=== PATIENT | male | born 1950 | race Caucasian/White ===

== ENCOUNTER → 2016-08-22 | Outpatient (CLI) | payer BC ==
[~2016-08-22] MED LIST: ASP81TEC PO; ATOR40TA PO; CYCL10TA9 PO; KETO10TA77 PO; OMG1KC PO
== END ==
LOC: CARD 11:11
PROVIDERS: ATTEND Family Medicine
DX: I49.3 Ventricular premature depolarization (principal)
CPT/HCPCS: 93225; 93226

== ENCOUNTER 2017-05-20 03:47 | Emergency (ER) | payer BC ==
[~2017-05-20] VITALS: Ht 188 cm; Wt 106.6 kg
[2017-05-20] MEDS ORDERED: GEMF600T3 (03:57)
[2017-05-20 04:15] LABS: BASOPHILS % (AUTO) 0 % (0-10); EOSINOPHILS # (AUTO) 0.5 10^3/uL (0.0-0.3); EOSINOPHILS % (AUTO) 3 % (0-10); HEMATOCRIT 49 % (40-54); HEMOGLOBIN 17.1 G/DL (13.3-17.7); LYMPHOCYTES # (AUTO) 0.9 X 10^3 (1.0-4.0); LYMPHOCYTES % (AUTO) 6 % (12-44); MEAN CORPUSCULAR HEMOGLOBIN 32 PG (25-34); MEAN CORPUSCULAR HGB CONC 35 G/DL (32-36); MEAN CORPUSCULAR VOLUME 91 FL (80-99); MEAN PLATELET VOLUME 10.9 FL (7.4-10.4); MONOCYTES # (AUTO) 0.8 X 10^3 (0.0-1.0); MONOCYTES % (AUTO) 5 % (0-12); NEUTROPHILS # (AUTO) 14.2 X 10^3 (1.8-7.8); NEUTROPHILS % (AUTO) 87 % (42-75); PLATELET COUNT 187 10^3/uL (130-400); RED BLOOD COUNT 5.43 10^6/uL (4.35-5.85); RED CELL DISTRIBUTION WIDTH 13.2 % (10.0-14.5); WHITE BLOOD COUNT 16.4 10^3/uL (4.3-11.0)
--- NOTE | 2017-05-20 04:23 | ED General ---
General Chief Complaint: Dizziness/Syncope Stated Complaint: CONSTIPATION FALL PAST OUT SWEATS NOT SLEEPING Nursing Triage Note: PT REPORTS HE HAD A SYNCOPAL EPISODE THIS AM WHEN HE GOT UP TO USE THE RESTROOM. PT REPORTS HE HAS BEEN CONSTIPATED AND HE BEGAN FEELING NAUSEATED. HE STATES HE THEN "FAINTED" AND REPORTS HE FELL TO THE GROUND AND HIT HIS HEAD ON THE CORNER OF THE WALL. PT DENIES ANY INJURY. HE REPORTS DIAPHORESIS WHITH THE SYNCOPAL EPISODE. Nursing Sepsis Screen: No Definite Risk Source of Information: Patient, Spouse History of Present Illness Date Seen by Provider: May 20, 2017 Time Seen by Provider: 03:56 Initial Comments PT ARRIVES VIA POV FROM HOME PT STATES HE GOT UP TO URINATE, THEN AND THEN HE WAS STANDING BY THE SINK AND C/ O BEING NAUSEATED AND GOT CLAMMY/SWEATY AND THEN PASSED OUT, HITTING THE RIGHT/ BACK OF HIS HEAD ON THE CORNER OF A WALL WITNESSED THE EPISODE AND STATES HE WAS COMPLETELY UNCONSCIOUS FOR APPROXIMATELY 1 MINUTE, AND WAS CONFUSED/DISORIENTED FOR APPROXIMATELY 2 MINUTES --DIDN'T KNOW WHAT HAPPENED. PT STATES HE HAD NOT BEEN ABLE TO SLEEP TONIGHT DUE TO VAGUE ABDOMINAL DISCOMFORT--MID AND UPPER ABDOMEN--HAS KEPT HIM UP ALL NIGHT-THOUGHT HE MIGHT BE CONSTIPATED. BUT DENIES TRYING TO HAVE A BM OR STRAINING, ETC. HAD SMALLER THAN NORMAL BM YESTERDAY 05/19/17 DURING THE DAY AND THEN AGAIN AT 2300 05/19/17 STATES HE TOOK 2 BENADRYL TONIGHT, TO TRY TO HELP HIM SLEEP PT STATES HE IS NOT HAVING NAUSEA OR THE ABDOMINAL DISCOMFORT AT THIS TIME PT DENIES HEADACHE OR PAIN FROM HITTING HIS HEAD NO NECK OR BACK PAIN NO PAIN ANYWHERE PRIOR TO SYNCOPAL EPISODE, PT DENIES ANY PALPITATIONS, CHEST PAIN OR SHORTNESS OF BREATH NO VISION CHANGES NO PARESTHESIAS OR MOTOR DEFICITS. PT DOES NOT HAVE ANY COMPLAINTS AT THIS TIME. STATES HE DID NOT EAT VERY MUCH TODAY, BECAUSE HE HAD GAINED A FEW POUNDS. PT ATE A [employer] FOR DINNER, STATES HE DOES HAVE A HISTORY OF GALLBLADDER DISEASE, AND HAS NOT HAD SURGERY NO HISTORY OF SIMILAR PCP: DR. ESTEVEZ Allergies and Home Medications Allergies Coded Allergies: No Known Drug Allergies (Unverified , 10/24/10) Home Medications Aspirin 81 Mg Tabec, 81 MG PO DAILY, (Reported) Atorvastatin Calcium 40 Mg Tablet, 1 EACH PO DAILY, (Reported) Gemfibrozil 600 Mg Tablet, (Reported) Hurley 3 Polyunsat Fatty Acids 1,000 Mg Cap, 2,000 MG PO DAILY, (Reported) Constitutional: see HPI, diaphoresis EENTM: no symptoms reported Respiratory: no symptoms reported Cardiovascular: see HPI, No chest pain, No edema, No palpitations, syncope, No vascular heart diseas Gastrointestinal: see HPI, abdominal pain, nausea Genitourinary: no symptoms reported Musculoskeletal: no symptoms reported Skin: no symptoms reported Psychiatric/Neurological: See HPI, Denies Headache, Denies Numbness, Denies Paresthesia, Denies Seizure, Denies Tingling, Denies Tremors, Denies Weakness Hematologic/Lymphatic: No Symptoms Reported Immunological/Allergic: no symptoms reported Past Lcdqmcm-Uarrnz-Veaphd Hx Patient Social History Alcohol Use: Denies Use Recreational Drug Use: No Smoking Status: Never a Smoker 2nd Hand Smoke Exposure: No Recent Foreign Travel: No Contact w/Someone Who Travel: No Recent Infectious Disease Expo: No Recent Hopitalizations: No Seasonal Allergies Seasonal Allergies: No Surgeries History of Surgeries: Yes (HIATAL HERNIA REPAIR; EGD/COLONOSCOPY) Surgeries: Abdominal Respiratory History of Respiratory Disorde: Yes Respiratory Disorders: Sleep Apnea Cardiovascular History of Cardiac Disorders: Yes (OCCASIONAL PVC'S) Cardiac Disorders: High Cholesterol Neurological History of Neurological Disord: No Reproductive System Hx Reproductive Disorders: No Genitourinary History of Genitourinary Disor: No Gastrointestinal History of Gastrointestinal Di: Yes Gastrointestinal Disorders: Gastroesophageal Reflux, Hiatal Hernia Musculoskeletal History of Musculoskeletal Dis: Yes Musculoskeletal Disorders: Arthritis Endocrine History of Endocrine Disorders: No HEENT History of HEENT Disorders: No (GLASSES) Cancer History of Cancer: No Psychosocial History of Psychiatric Problem: No Integumentary History of Skin or Integumenta: No Blood Transfusions History of Blood Disorders: No Physical Exam Vital Signs Vital Signs - First Documented 05/20/17 03:50 Temp 98.3 Pulse 71 Resp 16 B/P (MAP) 118/80 (93) Pulse Ox 97 O2 Delivery Room Air Capillary Refill : Less Than 3 Seconds General Appearance: No Apparent Distress, WD/WN, Other (AMBULATES INTO ER WITHOUT DIFFICULTY) HEENT: PERRL/EOMI, TMs Normal, Normal ENT Inspection, Pharynx Normal, Other ( NO EXTERNAL EVIDENCE OF TRAUMA ANYWHERE) Neck: Full Range of Motion, Normal Inspection, Non Tender, Supple, No Carotid Bruit, No JVD Respiratory: Chest Non Tender, Normal Breath Sounds, No Accessory Muscle Use, No Respiratory Distress Cardiovascular: Regular Rate, Rhythm, No Edema, No JVD, No Murmur, Normal Peripheral Pulses Gastrointestinal: Normal Bowel Sounds, No Organomegaly, No Pulsatile Mass, Non Tender, Soft Back: Normal Inspection, No CVA Tenderness, No Vertebral Tenderness Extremity: Normal Capillary Refill, Normal Inspection, Normal Range of Motion, Non Tender, No Calf Tenderness, No Pedal Edema Neurologic/Psychiatric: Alert, Oriented x3, No Motor/Sensory Deficits, Normal Mood/Affect, 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 Norm as Tested, No Abnormal Cerebellar Tests, Other (DTR 'S INTACT) Reflexes: 1+ Bicep (R), 1+ Bicep (L), 1+ Knee (R), 1+ Knee (L) Skin: Normal Color, Warm/Dry Progress/Results/Core Measures Suspected Sepsis Recent Fever Within 48 Hours: No Infection Criteria Present: None New/Unexplained Altered Menta: No Sepsis Screen: No Definite Risk Sepsis Diagnosis: SIRS Temperature:98.3 Pulse: 71 Respiratory Rate: 16 Laboratory Tests 05/20/17 04:10: White Blood Count 16.4H Blood Pressure 118 /80 Mean: 93 Laboratory Tests 05/20/17 04:10: Creatinine 1.11, INR Comment 1.1, Platelet Count 187, Total Bilirubin 1.5H Results/Orders Lab Results Laboratory Tests Test 05/20/17 04:10 Range/Units White Blood Count 16.4 H 4.3-11.0 10^3/uL Red Blood Count 5.43 4.35-5.85 10^6/uL Hemoglobin 17.1 13.3-17.7 G/DL Hematocrit 49 40-54 % Mean Corpuscular Volume 91 80-99 FL Mean Corpuscular Hemoglobin 32 25-34 PG Mean Corpuscular Hemoglobin Concent 35 32-36 G/DL Red Cell Distribution Width 13.2 10.0-14.5 % Platelet Count 187 130-400 10^3/uL Mean Platelet Volume 10.9 H 7.4-10.4 FL Neutrophils (%) (Auto) 87 H 42-75 % Lymphocytes (%) (Auto) 6 L 12-44 % Monocytes (%) (Auto) 5 0-12 % Eosinophils (%) (Auto) 3 0-10 % Basophils (%) (Auto) 0 0-10 % Neutrophils # (Auto) 14.2 H 1.8-7.8 X 10^3 Lymphocytes # (Auto) 0.9 L 1.0-4.0 X 10^3 Monocytes # (Auto) 0.8 0.0-1.0 X 10^3 Eosinophils # (Auto) 0.5 H 0.0-0.3 10^3/uL Basophils # (Auto) 0.0 0.0-0.1 10^3/uL Neutrophils % (Manual) 74 % Lymphocytes % (Manual) 8 % Monocytes % (Manual) 5 % Eosinophils % (Manual) 3 % Band Neutrophils 10 % Blood Morphology Comment NORMAL Prothrombin Time 14.0 12.2-14.7 SEC INR Comment 1.1 0.8-1.4 Activated Partial Thromboplast Time 29 24-35 SEC Sodium Level 138 135-145 MMOL/L Potassium Level 4.3 3.6-5.0 MMOL/L Chloride Level 103 98-107 MMOL/L Carbon Dioxide Level 22 21-32 MMOL/L Anion Gap 13 5-14 MMOL/L Blood Urea Nitrogen 24 H 7-18 MG/DL Creatinine 1.11 0.60-1.30 MG/DL Estimat Glomerular Filtration Rate > 60 BUN/Creatinine Ratio 22 Glucose Level 124 H 70-105 MG/DL Calcium Level 9.2 8.5-10.1 MG/DL Magnesium Level 2.4 1.8-2.4 MG/DL Total Bilirubin 1.5 H 0.1-1.0 MG/DL Aspartate Amino Transf (AST/SGOT) 33 5-34 U/L Alanine Aminotransferase (ALT/SGPT) 40 0-55 U/L Alkaline Phosphatase 30 L 40-136 U/L Troponin I < 0.30 <0.30 NG/ML Total Protein 7.8 6.4-8.2 GM/DL Albumin 4.1 3.2-4.5 GM/DL My Orders Orders - LARISA CASTRO DO Saline Lock/Iv-Start (05/20/17 03:57) Ekg Tracing (05/20/17 03:57) Monitor-Rhythm Ecg Trace Only (05/20/17 03:57) Cbc With Automated Diff (05/20/17 03:57) Comprehensive Metabolic Panel (05/20/17 03:57) Magnesium (05/20/17 03:57) Protime With Inr (05/20/17 03:57) Partial Thromboplastin Time (05/20/17 03:57) Troponin I (05/20/17 03:57) Acute Abd Series (05/20/17 03:57) Ct Head/Cervical Spine Wo (05/20/17 04:08) Ct Ines Chest/Noang Abd-Pelv W (05/20/17 04:08) Manual Differential (05/20/17 04:10) Lactated Ringers (Lr 1000 Ml Iv Solution (05/20/17 04:50) Medications Given in ED Current Medications Medications Dose Ordered Sig/Deandre Route Start Time Stop Time Status Last Admin Dose Admin Lactated Ringer's 1,000 ml @ 0 mls/hr Q0M ONCE IV 05/20/17 04:50 05/20/17 05:04 DC 05/20/17 05:15 0 MLS/HR Vital Signs/I&O Vital Sign - Last 12Hours 05/20/17 03:50 Temp 98.3 Pulse 71 Resp 16 B/P (MAP) 118/80 (93) Pulse Ox 97 O2 Delivery Room Air Capillary Refill : Less Than 3 Seconds Blood Pressure Mean: 93 Progress Note : Progress Note NO SYMPTOMS DURING ER STAY, OTHER THAN SHORTLY PRIOR TO DISMISSAL, PT HAD LARGE LIQUID/LOOSE STOOL. NO ABDOMINAL PAIN OR CRAMPING. NO NAUSEA NO CHEST PAIN OR SHORTNESS OF BREATH NO ARRHYTHMIAS NO DIZZINESS--AMBULATED TO AND FROM BATHROOM ON HIS OWN WITHOUT DIFFICULTY ECG Initial ECG Impression Date: May 20, 2017 Initial ECG Impression Time: 04:03 Initial ECG Rate: 70 Initial ECG Rhythm: Normal Sinus Initial ECG Impression: Normal Initial ECG Comparisson: No Previous ECG Available Diagnostic Imaging Comments ACUTE ABDOMEN XRAYS--NON-SPECIFIC BOWEL GAS PATTERN, PENDING RADIOLOGIST REVIEW CT CHEST ANGIO/ ABDOMEN AND PELVIS--NO P.E. . 3.6 X 5.2 X 4.9 CM WELL- CIRCUMSCRIBED OVOID HYPERENHANCING MASS IN ANTERIOR UPPER PELVIS ANTERIOR TO UPPER SIGMOID COLON, WITH PROMINENT FEEDING VESSEL. SUGGESTIVE OF VASCULAR LESION SUCH PSEUDOANEURYSM, SLIGHTLY ENLARGED SINCE PRIOR CT. FAT- CONTAINING LEFT INGUINAL HERNIA, WITH LEFT TESTICLE IN DISTAL ASPECT OF INGUINAL CANAL. ENLARGED PROSTATE. SINGLE SMALL GALLSTON IN GALLBLADDER. --PER [facility] VIA FAX @ 0610 CT HEAD/CERVICAL SPINE--NO ACUTE PROCESS, DEGENERATIVE CHANGES IN CERVICAL SPINE --PER [facility] VIA FAX @ 0642 Reviewed: Reviewed by Me Departure Impression Impression: Primary Impression: Episode of syncope Additional Impressions: SUSPECT EARLY GASTROENTERITIS [place] Head contusion Abnormal finding on CT scan Mild dehydration Disposition: 01 HOME, SELF-CARE Condition: Improved Departure-Patient Inst. Referrals: EDGAR ESTEVEZ MD (PCP/Family) Primary Care Physician Patient Instructions: Dehydration, Adult (DC), [id number], Minor Head Injury (DC), Syncope (Fainting) (DC) Add. Discharge Instructions: CLEAR LIQUIDS TODAY--WATER, BROTH, JELLO, GATORADE BRATS DIET--BANANAS, RICE, APPLESAUCE, TOAST, SALTINE CRACKERS CONTINUE CLEAR LIQUIDS AND BRATS DIET UNTIL YOUR GI SYMPTOMS HAVE RESOLVED FOLLOW UP WITH DR. ESTEVEZ IN 1-2 DAYS FOR FURTHER CARE All discharge instructions reviewed with patient and/or family. Voiced understanding. Scripts Lactobacillus Acidophilus (Acidophilus Lactobacillus) 1 Gm Powder 1 GM MC QID for 7 Days, #1 EA Prov: MATTHEWLARISA K DO 05/20/17 Ondansetron (Zofran Odt) 4 Mg Tab.rapdis 4 MG PO Q4H for Nausea/Vomiting, #10 TAB Prov: MATTHEW,LARISA K DO 05/20/17 Hyoscyamine Sulfate (Levsin-Sl) 0.125 Mg Tab.subl 1-2 TAB SL Q4H for Abdominal Pain, #10 TAB Prov: MATTHEWCONYA K DO 05/20/17 Pantoprazole Sodium (Protonix) 40 Mg Tablet.dr 40 MG PO DAILY, #15 TAB Prov: MATTHEW,LARISA K DO 05/20/17 MATTHEWLARISA K DO May 20, 2017 04:23
[2017-05-20 04:29] LABS: INR 1.1 (0.8-1.4)
[2017-05-20 04:36] LABS: ALANINE AMINOTRANSFERASE 40 U/L (0-55); ALBUMIN 4.1 GM/DL (3.2-4.5); ALKALINE PHOSPHATASE 30 U/L (40-136); BILIRUBIN,TOTAL 1.5 MG/DL (0.1-1.0); BUN/CREATININE RATIO 22; CALCIUM 9.2 MG/DL (8.5-10.1); CARBON DIOXIDE 22 MMOL/L (21-32); CHLORIDE 103 MMOL/L (98-107); CREATININE SERUM 1.11 MG/DL (0.60-1.30); GFR ESTIMATED > 60; GLUCOSE 124 MG/DL (70-105); MAGNESIUM 2.4 MG/DL (1.8-2.4); POTASSIUM 4.3 MMOL/L (3.6-5.0); SODIUM 138 MMOL/L (135-145); TOTAL PROTEIN 7.8 GM/DL (6.4-8.2)
[2017-05-20 04:39] LABS: BAND NEUTROPHILS 10 %; EOSINOPHILS % (MANUAL) 3 %; LYMPHOCYTES % (MANUAL) 8 %; MONOCYTES % (MANUAL) 5 %; NEUTROPHILS % (MANUAL) 74 %; RBC MORPH NORMAL
[2017-05-20] MEDS ORDERED: LACTATED RINGERS 1,000 ML IV ONE (04:50)
--- NOTE | 2017-05-20 06:33 | Diagnostic Imaging Report ---
PROCEDURE: CT head and CT cervical spine without contrast. TECHNIQUE: Multiple contiguous axial images were obtained through the brain and cervical spine without the use of intravenous contrast. Sagittal and coronal reformations through the cervical spine were then performed. INDICATION: Syncope. COMPARISON: None. FINDINGS: CT head: No intracranial hemorrhage, mass effect, hydrocephalus or extra-axial fluid collection. Moderate generalized cerebral and cerebellar parenchymal volume loss is age appropriate. No CT evidence of acute infarction. Intracranial vascular calcifications. Osseous structures are intact. Near-complete opacification of the right frontal sinus. The mastoids are clear. CT cervical spine: Minimal anterolisthesis of C4 on C5. Moderate to advanced degenerative endplate changes throughout cervical spine, most marked at C5-T1. Vertebral body heights preserved. No fractures. Degenerative endplate changes contribute to at least mild, possibly moderate spinal canal narrowing at C5-T1. Scattered moderate and advanced neural foraminal narrowing is also greatest at these levels. Moderate atherosclerotic calcifications including the carotid bifurcations. The visualized paravertebral soft tissues are otherwise unremarkable. IMPRESSION: No acute intracranial or cervical spine CT findings. Dictated by: Dictated on workstation # [id number]
[2017-05-20] MEDS ORDERED: HYOS0.1283 SL (06:52)
[2017-05-20] MEDS ORDERED: ONDA4TAB8 PO (06:52)
[2017-05-20] MEDS ORDERED: RX-HYOSCYAMINE 0.125 MG SL (LEVSIN) PPK#6 SL STA (06:52)
[2017-05-20] MEDS ORDERED: PANT40TA2 PO (06:52)
[2017-05-20] MEDS ORDERED: LACT1POW8 MC (06:52)
[2017-05-20] MEDS ORDERED: RX-ONDANSETRON 4 MG ODT (ZOFRAN) PPK #4 PO STA (06:52)
[2017-05-20] MEDS ORDERED: PANTOPRAZOLE 40 MG (PROTONIX) TAB PO ONE (07:00)
--- NOTE | 2017-05-20 07:14 | Diagnostic Imaging Report ---
EXAM: ACUTE ABD SERIES INDICATION: Constipation. Fall. Syncope. Diaphoresis. COMPARISON: CTA chest, abdomen and pelvis also performed today. FINDINGS: Normal heart size and pulmonary vascularity. No focal pulmonary opacity, pleural effusion or pneumothorax. No free intraperitoneal air. Nonspecific bowel gas pattern. Surgical clips near the GE junction. No acute osseous findings. IMPRESSION: No acute radiographic findings in the chest or abdomen. Dictated by: Dictated on workstation # [id number]
[2017-05-20 07:20] VITALS: BP 127/75
--- NOTE | 2017-05-20 07:45 | Diagnostic Imaging Report ---
INDICATION: Syncope and constipation. TECHNIQUE: Multiple contiguous axial images were obtained through the chest and abdomen after the uneventful bolus administration of intravenous contrast. MIP reconstructions were performed. FINDINGS: There are no discrete pulmonary nodules, masses or infiltrates. There is no pleural or pericardial fluid. There are no filling defects seen within the pulmonary arteries to suggest pulmonary embolism. Thoracic aorta is normal in caliber without evidence of dissection. There is some minimal scarring in the lung bases. There is no pathologically enlarged adenopathy in the chest. Osseous structures are unremarkable. There is a 1 cm cyst in right lobe of the liver. There is cholelithiasis. There is no biliary ductal dilatation. There is a 2.1 cm hyperdense lesion in the spleen. There is some irregular peripheral enhancement likely meningioma although indeterminate. The pancreas and adrenal glands are unremarkable. The kidneys are normal in appearance. Bowel gas pattern is nonspecific. There is no CT evidence of appendicitis. Bladder is normal. There is enlargement of the prostate gland up to 6.6 cm transverse. There is no ascites or free air. There are degenerative changes in the spine. There is a fat-containing left inguinal hernia. The left testicle is within the distal aspect of the inguinal canal only partially visualized on this exam. The abdominal aorta is nonaneurysmal. There is no pathologically enlarged adenopathy. There is a well-circumscribed ovoid hyperenhancing mass in the anterior aspect of the upper pelvis anterior to the sigmoid colon. This is best seen on series 7 image 78. Mass has a prominent feeding blood vessel. IMPRESSION: Unremarkable CTA chest apart from some minimal scarring in lung bases. 3.6 x 5.2 x 4.9 cm well-circumscribed ovoid hyperenhancing mass in the anterior upper pelvis anteriorly to the upper sigmoid colon. There is a prominent feeding blood vessel. Enhancement pattern and feeding vessel are suggestive of a vascular lesion such as pseudoaneurysm. This appears to have enlarged since prior examination. Recommend focused ultrasound to assess vascularity prior to any biopsy attempt. Fat-containing left inguinal hernia. Additionally the left testicle seen within the distal aspect of the inguinal canal only partially visualized on this exam. Enlargement of prostate gland. Cholelithiasis Additional findings as described above. Dictated by: Dictated on workstation # [id number]
--- OUTSIDE RECORDS SUMMARY | 2017-05-20 11:46 | XMS REPORT | Continuity of Care Document ---
Author Author [facility] Organization [facility] Address Unknown Phone Unavailable Allergies Active Description Code Type Severity Reaction Onset Reported/Identified Relationship to Patient Clinical Status Yes No Known Drug Allergies [id number] Drug Allergy Unknown N/A 10/24/2010 Medications There is no data. Problems Date Dx Coded Attending Type Code Diagnosis Diagnosed By 10/25/2010 Ot 276.50 VOLUME DEPLETION, UNSPECIFIED 10/25/2010 Ot 401.9 HYPERTENSION NOS 10/25/2010 Ot 535.50 UNSP GASTRITIS GASTRODUODENITIS W/O ME 10/25/2010 Ot V58.66 LONG-TERM ( CURRENT) USE OF ASPIRIN 10/25/2010 Ot V58.69 OTH MED,LT, CURRENT USE 05/21/2013 ZENAIDA WOOD, EDGAR Orozco Ot 327.23 OBSTRUCTIVE SLEEP APNEA (ADULT) (PEDIATR 05/21/2013 EDGAR ESTEVEZ MD Ot 426.13 AV BLOCK-2ND DEGREE NEC 06/19/2013 DANIELA MERCADO APRN Ot 327.23 OBSTRUCTIVE SLEEP APNEA (ADULT) (PEDIATR 05/14/2014 Ot 575.8 05/14/2014 Ot 789.06 05/14/2014 EDGAR ESTEVEZ MD R Ot 426.13 05/14/2014 EDGAR ESTEVEZ MD R Ot 427.69 04/14/2015 Ot 575.8 04/14/2015 Ot 789.06 04/14/2015 EDGAR ESTEVEZ MD R Ot 426.13 04/14/2015 EDGAR ESTEVEZ MD Ot 427.69 03/04/2016 Ot 575.8 DIS OF GALLBLADDER NEC 03/04/2016 Ot 789.06 ABDOMINAL PAIN, EPIGASTRIC 03/04/2016 EDGAR ESTEVEZ MD Ot 426.13 AV BLOCK-2ND DEGREE NEC 03/04/2016 EDGAR ESTEVEZ MD Ot 427.69 PREMATURE BEATS NEC 08/18/2016 EDGAR ESTEVEZ MD Ot 426.13 AV BLOCK-2ND DEGREE NEC 08/18/2016 ZENAIDA WOOD, EDGAR Orozco Ot 427.69 PREMATURE BEATS NEC 09/06/2016 ZENAIDA WOOD, EDGAR Orozco Ot I49.3 VENTRICULAR PREMATURE DEPOLARIZATION Procedures There is no data. Results Test Result Range Complete blood count (CBC) with automated white blood cell (WBC) differential - 05/20/17 04:10 Blood leukocytes automated count (number/volume) 16.4 10*3/uL 4.3-11.0 Blood erythrocytes automated count (number/volume) 5.43 10*6/uL 4.35-5.85 Venous blood hemoglobin measurement (mass/volume) 17.1 g/dL 13.3-17.7 Blood hematocrit (volume fraction) 49 % 40-54 Automated erythrocyte mean corpuscular volume 91 [foz_us] 80-99 Automated erythrocyte mean corpuscular hemoglobin (mass per erythrocyte) 32 pg 25-34 Automated erythrocyte mean corpuscular hemoglobin concentration measurement ( mass/volume) 35 g/dL 32-36 Automated erythrocyte distribution width ratio 13.2 % 10.0-14.5 Automated blood platelet count (count/volume) 187 10*3/uL 130-400 Automated blood platelet mean volume measurement 10.9 [foz_us] 7.4-10.4 Automated blood neutrophils/100 leukocytes 87 % 42-75 Automated blood lymphocytes/100 leukocytes 6 % 12-44 Blood monocytes/100 leukocytes 5 % 0-12 Automated blood eosinophils/100 leukocytes 3 % 0-10 Automated blood basophils/100 leukocytes 0 % 0-10 Blood neutrophils automated count (number/volume) 14.2 10*3 1.8-7.8 Blood lymphocytes automated count (number/volume) 0.9 10*3 1.0-4.0 Blood monocytes automated count (number/volume) 0.8 10*3 0.0-1.0 Automated eosinophil count 0.5 10*3/uL 0.0-0.3 Automated blood basophil count (count/volume) 0.0 10*3/uL 0.0-0.1 PT panel in platelet poor plasma by coagulation assay - 05/20/17 04:10 Prothrombin time (PT) in platelet poor plasma by coagulation assay 14.0 s 12.2-14.7 INR in platelet poor plasma or blood by coagulation assay 1.1 0.8-1.4 Comprehensive metabolic panel - 05/20/17 04:10 Serum or plasma sodium measurement (moles/volume) 138 mmol/L 135-145 Serum or plasma potassium measurement (moles/volume) 4.3 mmol/L 3.6-5.0 Serum or plasma chloride measurement (moles/volume) 103 mmol/L 98-107 Carbon dioxide 22 mmol/L 21-32 Serum or plasma anion gap determination (moles/volume) 13 mmol/L 5-14 Serum or plasma urea nitrogen measurement (mass/volume) 24 mg/dL 7-18 Serum or plasma creatinine measurement (mass/volume) 1.11 mg/dL 0.60-1.30 Serum or plasma urea nitrogen/creatinine mass ratio 22 NRG Serum or plasma creatinine measurement with calculation of estimated glomerular filtration rate > NRG Serum or plasma glucose measurement (mass/volume) 124 mg/dL 70-105 Serum or plasma calcium measurement (mass/volume) 9.2 mg/dL 8.5-10.1 Serum or plasma total bilirubin measurement (mass/volume) 1.5 mg/dL 0.1-1.0 Serum or plasma alkaline phosphatase measurement (enzymatic activity/volume) 30 U/L 40-136 Serum or plasma aspartate aminotransferase measurement (enzymatic activity/ volume) 33 U/L 5-34 Serum or plasma alanine aminotransferase measurement (enzymatic activity/volume ) 40 U/L 0-55 Serum or plasma protein measurement (mass/volume) 7.8 g/dL 6.4-8.2 Serum or plasma albumin measurement (mass/volume) 4.1 g/dL 3.2-4.5 Magnesium - 05/20/17 04:10 Magnesium 2.4 mg/dL 1.8-2.4 Activated partial thromboplastin time (aPTT) in platelet poor plasma bycoagulation assay - 05/20/17 04:10 Activated partial thromboplastin time (aPTT) in platelet poor plasma bycoagulation assay 29 s 24-35 Blood manual differential performed detection - 05/20/17 04:10 Blood monocytes/100 leukocytes 5 % NRG Manual blood segmented neutrophils/100 leukocytes 74 % NRG Blood band neutrophils/100 leukocytes 10 % NRG Manual blood lymphocytes/100 leukocytes 8 % NRG Manual eosinophils/100 leukocytes in nose 3 % NRG Blood erythrocyte morphology finding identification NORMAL NRG Serum or plasma troponin i.cardiac measurement (mass/volume) - 05/20/17 04:10 Serum or plasma troponin i.cardiac measurement (mass/volume) < ng/ mL <0.30 Encounters ACCT No. Visit Date/Time Discharge Status Pt. Type Provider Facility Loc./Unit Complaint [id number] 08/22/2016 11:11:00 08/22/2016 23:59:59 CLS Outpatient EDGAR ESTEVEZ MD [facility] CARD I49.3 [id number] 10/23/2015 11:37:00 10/23/2015 23:59:59 CLS Outpatient KAROL HOWARD [facility] QUICK [id number] 06/18/2013 20:50:00 06/19/2013 06:30:00 DIS Outpatient DANIELA MERCADO APRN [facility] SLEEP JUAN JOSÉ [id number] 05/27/2013 08:19:00 05/27/2013 23:59:59 CLS Outpatient EDGAR ESTEVEZ MD [facility] CARD PVC [id number] 05/20/2013 20:03:00 05/21/2013 06:20:00 DIS Outpatient EDGAR ESTEVEZ MD [facility] SLEEP OA,SNORING,HTN [id number] 08/25/2012 14:28:00 08/25/2012 23:59:59 CLS Outpatient [id number] 05/20/2017 04:20:00 Document Registration [id number] 10/28/2010 07:54:00 Document Registration [id number] 10/24/2010 08:20:00 Document Registration
--- OUTSIDE RECORDS SUMMARY | 2017-05-20 11:46 | XMS REPORT | Continuity of Care Document ---
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
--- OUTSIDE RECORDS SUMMARY | 2017-05-20 11:46 | XMS REPORT | Clinical Summary ---
Author Author [facility] Organization [facility] Address Unknown Phone Unavailable Care Team Providers Care Washer Engineer Name Role Phone Jose Luis Velasco MD PCP Becky Chen Unavailable Unavailable Source Comments Some departments are not documenting in the electronic medical record. If you do not see the information that you expected, contact Release of Information in the Health Information Management department at [phone] for further assistance in locating additional records.[facility] Allergies No Known Allergies Current Medications Prescription Sig. Disp. Refills Start End Date Status Date gemfibrozil (LOPID) 600 Take 600 mg by mouth Active mg tablet twice daily. atorvastatin (LIPITOR) 40 Take 40 mg by mouth Active mg tablet daily. aspirin EC 81 mg tablet Take 81 mg by mouth Active daily. diphenhydrAMINE Take 50 mg by mouth at Active (BENADRYL) 50 mg capsule bedtime daily. 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 MPI Stress Test: This study is normal. There is no evidence of significant active inducible ischemia or myocardial injury. No negative prognostic indicators are evident. All myocardial segments are viable. No prior studies are available for comparison. This study suggests a low likelihood of significant active inducible ischemia. In aggregate the current study is low risk in regards to predicted annual cardiovascular mortality rate. 09/05/13 ECHO: Overall left ventricular systolic function is normal. EF~ 65%. Mild concentric left ventricular hypertrophy. No significant valvular stenosis or regurgitation. Mildly dilated sinuses of valsalva and proximal ascending aorta. Normal estimated peak systolic PA pressure of 25 mmHg. LA size 4.2 cm. 08/22/16 Holter ([facility] Frequent Bigeminy, Frequent PVCs. 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 Hyperlipidemia 07/31/2013 Sleep apnea 07/31/2013 Back problem 07/31/2013 Family History Medical History Relation Name Comments Coronary Artery Disease Father Stroke Father Parkinson's Mother Relation Name Status Comments Father Mother Social History Tobacco Use Types Packs/Day Years Used Date Never Smoker Smokeless Tobacco: Never Used Alcohol Use Drinks/Week oz/Week Comments No Sex Assigned at Date Recorded Not on file Last Filed Vital Signs Vital Sign Reading Time Taken Blood Pressure 124/80 11/20/2016 10:53 AM CDT Pulse 60 10/31/2016 3:02 PM CDT Temperature - - Respiratory Rate - - Oxygen Saturation - - Inhaled Oxygen - - Concentration Weight 105.2 kg (232 lb) 11/20/2016 10:53 AM CDT Height 188 cm (6' 2") 11/20/2016 10:53 AM CDT Body Mass Index 29.79 11/20/2016 10:53 AM CDT Plan of Treatment Health Maintenance Due Date Last Done Comments HEPATITIS C SCREENING 1949 PHYSICAL (COMPREHENSIVE) 02/09/1956 EXAM PERTUSSIS VACCINE 02/09/1960 TETANUS VACCINE 1966 COLORECTAL CANCER 1999 SCREENING SHINGLES VACCINE 2009 PREVNAR/PNEUMOVAX (#1) 2014 INFLUENZA VACCINE 11/07/2016 Results Not on filefrom Last 3 Months
== END 2017-05-20 07:20 | disposition home or self-care (01) ==
LOC: EDUNIT# 03:47 → ER 03:49
DX: S00.93XA Contusion of unspecified part of head, initial encounter (principal); R55 Syncope and collapse; K80.20 Calculus of gallbladder without cholecystitis without obstruction; E86.0 Dehydration; R93.5 Abnormal findings on diagnostic imaging of other abdominal regions, including retroperitoneum; K21.9 Gastro-esophageal reflux disease without esophagitis; E78.00 Pure hypercholesterolemia, unspecified; G47.30 Sleep apnea, unspecified; Z79.82 Long term (current) use of aspirin; W01.198A Fall on same level from slipping, tripping and stumbling with subsequent striking against other object, initial encounter; Y92.009 Unspecified place in unspecified non-institutional (private) residence as the place of occurrence of the external cause
CPT/HCPCS: 36415; 70450; 71275; 72125; 74022; 74177; 80053; 83735; 84484; 85007; 85027; 85610; 85730; 93041; 96360